=== PATIENT | male | born 1970 | race African-American/Black ===

== ENCOUNTER 2021-12-31 18:30 | Inpatient (IN) | payer BC ==
[~2021-12-31] VITALS: Ht 188 cm; Wt 170.1 kg
[2021-12-31] MEDS ORDERED: AMIODARONE HCL 200 MG TABLET PO ONE (22:30)
[2021-12-31] MEDS ORDERED: ACETAMINOPHEN 325MG TABLET PO PRN (22:30)
[2021-12-31] MEDS ORDERED: ONDANSETRON HCL 4MG/2ML INJ IV PRN (22:30)
[2021-12-31] MEDS ORDERED: LORAZEPAM 1MG TABLET PO PRN (22:30)
[2021-12-31] MEDS ORDERED: CLONIDINE 0.1MG TABLET PO PRN (22:30)
[2022-01-01 00:26] VITALS: BP 152/76
[2022-01-01] MEDS ORDERED: AMIODARONE HCL 200 MG TABLET PO NR (00:30)
[2022-01-01 02:11] VITALS: BP 152/76
[2022-01-01] MEDS ORDERED: BISACODYL 5MG TABLET PO PRN (05:30)
[2022-01-01] MEDS ORDERED: NON FORMULARY PATIENT HOME MED PO PRN (05:30)
[2022-01-01] MEDS ORDERED: MELATONIN 3MG TABLET PO PRN (06:00)
[2022-01-01 06:32] LABS: BASOPHILS % 0.7 % (0.0-2.0); EOSINOPHILS % 0.9 % (0.0-5.0); HEMATOCRIT. 26.3 % (42.0-52.0); HEMOGLOBIN. 8.4 g/dL (14.0-18.0); MEAN CORPUSCULAR HEMOGLOBIN 22.4 pg (28.0-32.0); MEAN CORPUSCULAR VOLUME 69.9 fL (80.0-94.0); MEAN PLATELET VOLUME 8.9 fl (7.4-10.4); NEUTROPHILS % 75.4 % (40.0-76.0); PLATELET 307 x1000/uL (130-400); RED BLOOD CELL COUNT 3.77 mill/uL (4.7-6.1); RED CELL DISTRIBUTION WIDTH 21.8 % (11.6-14.6)
[2022-01-01 06:55] LABS: CHLORIDE 107 mEq/L (98-107)
[2022-01-01] MEDS: PANTOPRAZOLE 40MG DR TABLET PO SCH (07:13)
[2022-01-01] MEDS ORDERED: NALOXONE HCL 0.4MG/ML VIAL IV PRN (07:30)
[2022-01-01 08:00] VITALS: BP 117/67
[2022-01-01] MEDS ORDERED: AMIODARONE HCL 200 MG TABLET PO SCH (09:00)
[2022-01-01 09:32] LABS: PLATELET ESTIMATE NORMAL
[2022-01-01] MEDS: CHLORHEXIDINE GLUCONATE 0.12% MOUTHWASH UDC SSP SCH ×2 (09:55→20:34)
[2022-01-01] MEDS: ASCORBIC ACID 500 MG TABLET PO SCH (09:56)
[2022-01-01] MEDS: LIDOCAINE 5% PATCH TOP SCH (09:56)
[2022-01-01] MEDS: ASPIRIN 81MG TABLET PO SCH (09:57)
[2022-01-01] MEDS: TAMSULOSIN HCL 0.4MG SR CAPSULE PO SCH (09:57)
[2022-01-01] MEDS: AMLODIPINE 2.5MG TABLET PO SCH ×2 (09:57→20:35)
[2022-01-01] MEDS: SENNOSIDES/DOCUSATE SOD 8.6/50MG TABLET PO SCH ×3 (09:57→20:39)
[2022-01-01] MEDS: AMIODARONE HCL 200 MG TABLET PO SCH ×2 (09:58→20:35)
[2022-01-01] MEDS: POLYETHYLENE GLYCOL 3350 (17GM) 1 DOSE PACK PO SCH (09:58)
[2022-01-01] MEDS: METOPROLOL TARTRATE 25MG TABLET PO SCH ×2 (09:59→20:35)
[2022-01-01] MEDS: HEPARIN 5000 UNITS/ML VIAL SUBCUT SCH ×3 (10:08→21:26)
[2022-01-01] MEDS: VITAMIN E ACETATE 400 UNITS CAPSULE PO SCH (10:08)
[2022-01-01 20:00] VITALS: BP 120/52
[2022-01-01] MEDS: TRAMADOL 50MG TABLET PO PRN (20:36)
[2022-01-02] MEDS: TRAMADOL 50MG TABLET PO PRN ×2 (00:57→06:20)
[2022-01-02] MEDS: MELATONIN 3MG TABLET PO PRN (01:58)
[2022-01-02] MEDS: HEPARIN 5000 UNITS/ML VIAL SUBCUT SCH ×3 (06:19→22:21)
[2022-01-02] MEDS: PANTOPRAZOLE 40MG DR TABLET PO SCH (06:20)
[2022-01-02 08:00] VITALS: BP 122/62
[2022-01-02] MEDS: ASPIRIN 81MG TABLET PO SCH (08:56)
[2022-01-02] MEDS: ASCORBIC ACID 500 MG TABLET PO SCH (09:00)
[2022-01-02] MEDS: POLYETHYLENE GLYCOL 3350 (17GM) 1 DOSE PACK PO SCH (09:00)
[2022-01-02] MEDS: TAMSULOSIN HCL 0.4MG SR CAPSULE PO SCH (09:00)
[2022-01-02] MEDS: AMIODARONE HCL 200 MG TABLET PO SCH ×2 (09:00→20:54)
[2022-01-02] MEDS: VITAMIN E ACETATE 400 UNITS CAPSULE PO SCH (09:00)
[2022-01-02] MEDS: SENNOSIDES/DOCUSATE SOD 8.6/50MG TABLET PO SCH ×2 (09:00→20:55)
[2022-01-02] MEDS: METOPROLOL TARTRATE 25MG TABLET PO SCH ×2 (09:00→20:54)
[2022-01-02] MEDS: CHLORHEXIDINE GLUCONATE 0.12% MOUTHWASH UDC SSP SCH ×2 (09:00→20:54)
[2022-01-02] MEDS: LIDOCAINE 5% PATCH TOP SCH (09:00)
[2022-01-02] MEDS: AMLODIPINE 2.5MG TABLET PO SCH ×2 (09:08→20:54)
[2022-01-02 20:24] VITALS: BP 149/77
[2022-01-03 06:14] LABS: HEMATOCRIT 25.6 % (42.0-52.0); HEMOGLOBIN 8.1 g/dL (14.0-18.0); MEAN CORPUSCULAR HEMOGLOBIN 21.9 pg (28.0-32.0); MEAN CORPUSCULAR VOLUME 69.3 fL (80.0-94.0); PLATELET 327 x1000/uL (130-400); RED BLOOD CELL COUNT 3.69 mill/uL (4.7-6.1); RED CELL DISTRIBUTION WIDTH 22.1 % (11.6-14.6)
[2022-01-03] MEDS: HEPARIN 5000 UNITS/ML VIAL SUBCUT SCH ×3 (06:27→21:25)
[2022-01-03 06:32] LABS: CHLORIDE 105 mEq/L (98-107)
[2022-01-03 08:00] VITALS: BP 107/67
[2022-01-03] MEDS: METOPROLOL TARTRATE 25MG TABLET PO SCH ×2 (09:00→21:22)
[2022-01-03] MEDS: TAMSULOSIN HCL 0.4MG SR CAPSULE PO SCH (09:00)
[2022-01-03] MEDS: AMLODIPINE 2.5MG TABLET PO SCH ×2 (09:00→21:22)
[2022-01-03] MEDS: CHLORHEXIDINE GLUCONATE 0.12% MOUTHWASH UDC SSP SCH ×2 (09:50→21:24)
[2022-01-03] MEDS: POLYETHYLENE GLYCOL 3350 (17GM) 1 DOSE PACK PO SCH (09:50)
[2022-01-03] MEDS: AMIODARONE HCL 200 MG TABLET PO SCH ×2 (09:51→21:23)
[2022-01-03] MEDS: ASCORBIC ACID 500 MG TABLET PO SCH (09:51)
[2022-01-03] MEDS: ASPIRIN 81MG TABLET PO SCH (09:51)
[2022-01-03] MEDS: SENNOSIDES/DOCUSATE SOD 8.6/50MG TABLET PO SCH ×2 (09:51→21:24)
[2022-01-03] MEDS: VITAMIN E ACETATE 400 UNITS CAPSULE PO SCH (09:53)
[2022-01-03] MEDS: FAMOTIDINE 20MG TABLET PO SCH ×2 (09:53→16:56)
[2022-01-03] MEDS: LIDOCAINE 5% PATCH TOP SCH (10:26)
[2022-01-03] MEDS ORDERED: HYDROXYZINE 25MG TABLET PO PRN (17:30)
[2022-01-03 20:18] VITALS: BP 146/111
[2022-01-03] MEDS: MELATONIN 3MG TABLET PO PRN (21:23)
[2022-01-04] MEDS: HEPARIN 5000 UNITS/ML VIAL SUBCUT SCH ×3 (06:05→21:11)
[2022-01-04] MEDS: AMLODIPINE 2.5MG TABLET PO SCH ×2 (10:06→21:12)
[2022-01-04] MEDS: SENNOSIDES/DOCUSATE SOD 8.6/50MG TABLET PO SCH ×2 (10:06→21:11)
[2022-01-04] MEDS: AMIODARONE HCL 200 MG TABLET PO SCH ×2 (10:07→21:13)
[2022-01-04] MEDS: ASCORBIC ACID 500 MG TABLET PO SCH (10:07)
[2022-01-04] MEDS: TAMSULOSIN HCL 0.4MG SR CAPSULE PO SCH (10:07)
[2022-01-04] MEDS: FAMOTIDINE 20MG TABLET PO SCH ×2 (10:08→17:20)
[2022-01-04] MEDS: CHLORHEXIDINE GLUCONATE 0.12% MOUTHWASH UDC SSP SCH ×2 (10:08→21:11)
[2022-01-04] MEDS: VITAMIN E ACETATE 400 UNITS CAPSULE PO SCH (10:08)
[2022-01-04] MEDS: POLYETHYLENE GLYCOL 3350 (17GM) 1 DOSE PACK PO SCH (10:08)
[2022-01-04] MEDS: METOPROLOL TARTRATE 25MG TABLET PO SCH ×2 (10:10→21:00)
[2022-01-04] MEDS: ASPIRIN 81MG TABLET PO SCH (10:10)
[2022-01-04] MEDS: LIDOCAINE 5% PATCH TOP SCH (10:11)
[2022-01-04] MEDS: FUROSEMIDE 20MG TABLET PO SCH (13:30)
[2022-01-04 20:06] VITALS: BP 97/68
[2022-01-04] MEDS: MELATONIN 3MG TABLET PO PRN (21:12)
[2022-01-05] MEDS: HEPARIN 5000 UNITS/ML VIAL SUBCUT SCH ×3 (05:48→21:36)
[2022-01-05] MEDS: LIDOCAINE 5% PATCH TOP SCH (09:00)
[2022-01-05] MEDS: CHLORHEXIDINE GLUCONATE 0.12% MOUTHWASH UDC SSP SCH ×3 (09:00→21:36)
[2022-01-05] MEDS: POLYETHYLENE GLYCOL 3350 (17GM) 1 DOSE PACK PO SCH ×2 (09:00→09:02)
[2022-01-05] MEDS: ASPIRIN 81MG TABLET PO SCH (09:03)
[2022-01-05] MEDS: SENNOSIDES/DOCUSATE SOD 8.6/50MG TABLET PO SCH ×2 (09:03→21:34)
[2022-01-05] MEDS: TAMSULOSIN HCL 0.4MG SR CAPSULE PO SCH (09:03)
[2022-01-05] MEDS: FAMOTIDINE 20MG TABLET PO SCH ×2 (09:03→16:58)
[2022-01-05] MEDS: TRAMADOL 50MG TABLET PO PRN ×2 (09:05→20:25)
[2022-01-05] MEDS: METOPROLOL TARTRATE 25MG TABLET PO SCH ×2 (09:06→21:35)
[2022-01-05] MEDS: VITAMIN E ACETATE 400 UNITS CAPSULE PO SCH (09:06)
[2022-01-05] MEDS: AMIODARONE HCL 200 MG TABLET PO SCH ×2 (09:06→21:35)
[2022-01-05] MEDS: ASCORBIC ACID 500 MG TABLET PO SCH (09:06)
[2022-01-05] MEDS: AMLODIPINE 2.5MG TABLET PO SCH (09:06)
[2022-01-05] MEDS: FUROSEMIDE 20MG TABLET PO SCH (09:15)
[2022-01-05] MEDS ORDERED: LIDOCAINE 5% PATCH TOP SCH (10:30)
[2022-01-05] MEDS: MELATONIN 3MG TABLET PO PRN (23:32)
[2022-01-06] MEDS: TRAMADOL 50MG TABLET PO PRN ×4 (00:58→21:49)
[2022-01-06] MEDS: HEPARIN 5000 UNITS/ML VIAL SUBCUT SCH ×3 (06:23→21:38)
[2022-01-06] MEDS: METOPROLOL TARTRATE 25MG TABLET PO SCH ×2 (09:00→21:37)
[2022-01-06] MEDS: CHLORHEXIDINE GLUCONATE 0.12% MOUTHWASH UDC SSP SCH ×2 (09:00→21:37)
[2022-01-06] MEDS: TAMSULOSIN HCL 0.4MG SR CAPSULE PO SCH (09:00)
[2022-01-06] MEDS: AMIODARONE HCL 200 MG TABLET PO SCH ×2 (09:00→21:38)
[2022-01-06] MEDS: FUROSEMIDE 20MG TABLET PO SCH (09:00)
[2022-01-06] MEDS: POLYETHYLENE GLYCOL 3350 (17GM) 1 DOSE PACK PO SCH (09:00)
[2022-01-06] MEDS: AMLODIPINE 2.5MG TABLET PO SCH (09:00)
[2022-01-06] MEDS: FAMOTIDINE 20MG TABLET PO SCH ×2 (10:33→17:10)
[2022-01-06] MEDS: ASPIRIN 81MG TABLET PO SCH (10:33)
[2022-01-06] MEDS: VITAMIN E ACETATE 400 UNITS CAPSULE PO SCH (10:34)
[2022-01-06] MEDS: ASCORBIC ACID 500 MG TABLET PO SCH (10:34)
[2022-01-06] MEDS: SENNOSIDES/DOCUSATE SOD 8.6/50MG TABLET PO SCH ×2 (10:35→21:37)
[2022-01-06] MEDS: LIDOCAINE 5% PATCH TOP SCH (10:37)
[2022-01-06] MEDS ORDERED: NALOXONE HCL 0.4MG/ML VIAL IV PRN (11:00)
[2022-01-06 20:00] VITALS: BP 150/80
[2022-01-06] MEDS: MELATONIN 3MG TABLET PO PRN (21:49)
[2022-01-07] MEDS: HEPARIN 5000 UNITS/ML VIAL SUBCUT SCH ×3 (05:45→21:11)
[2022-01-07 05:59] LABS: CHLORIDE 106 mEq/L (98-107)
[2022-01-07 08:00] VITALS: BP 141/56
[2022-01-07] MEDS: CHLORHEXIDINE GLUCONATE 0.12% MOUTHWASH UDC SSP SCH ×2 (10:30→21:04)
[2022-01-07] MEDS: LIDOCAINE 5% PATCH TOP SCH (11:04)
[2022-01-07] MEDS: POLYETHYLENE GLYCOL 3350 (17GM) 1 DOSE PACK PO SCH (11:05)
[2022-01-07] MEDS: SENNOSIDES/DOCUSATE SOD 8.6/50MG TABLET PO SCH ×2 (11:06→20:59)
[2022-01-07] MEDS: AMLODIPINE 2.5MG TABLET PO SCH (11:07)
[2022-01-07] MEDS: ASPIRIN 81MG TABLET PO SCH (11:07)
[2022-01-07] MEDS: VITAMIN E ACETATE 400 UNITS CAPSULE PO SCH (11:07)
[2022-01-07] MEDS: METOPROLOL TARTRATE 25MG TABLET PO SCH ×2 (11:09→20:56)
[2022-01-07] MEDS: TAMSULOSIN HCL 0.4MG SR CAPSULE PO SCH (11:10)
[2022-01-07] MEDS: AMIODARONE HCL 200 MG TABLET PO SCH ×2 (11:10→21:00)
[2022-01-07] MEDS: FAMOTIDINE 20MG TABLET PO SCH ×2 (11:10→16:59)
[2022-01-07] MEDS: ASCORBIC ACID 500 MG TABLET PO SCH (11:11)
[2022-01-07] MEDS: FUROSEMIDE 20MG TABLET PO SCH (11:11)
[2022-01-07 20:00] VITALS: BP 97/67
[2022-01-07] MEDS: ACETAMINOPHEN 325MG TABLET PO PRN (21:01)
[2022-01-08] MEDS: HEPARIN 5000 UNITS/ML VIAL SUBCUT SCH ×3 (06:00→22:10)
[2022-01-08 08:00] VITALS: BP 134/59
[2022-01-08] MEDS: POLYETHYLENE GLYCOL 3350 (17GM) 1 DOSE PACK PO SCH (10:37)
[2022-01-08] MEDS: AMLODIPINE 2.5MG TABLET PO SCH (10:38)
[2022-01-08] MEDS: SENNOSIDES/DOCUSATE SOD 8.6/50MG TABLET PO SCH ×2 (10:38→21:00)
[2022-01-08] MEDS: METOPROLOL TARTRATE 25MG TABLET PO SCH ×2 (10:38→21:00)
[2022-01-08] MEDS: ASPIRIN 81MG TABLET PO SCH (10:40)
[2022-01-08] MEDS: ASCORBIC ACID 500 MG TABLET PO SCH (10:40)
[2022-01-08] MEDS: AMIODARONE HCL 200 MG TABLET PO SCH (10:40)
[2022-01-08] MEDS: FUROSEMIDE 20MG TABLET PO SCH (10:41)
[2022-01-08] MEDS: FAMOTIDINE 20MG TABLET PO SCH ×2 (10:41→16:58)
[2022-01-08] MEDS: TAMSULOSIN HCL 0.4MG SR CAPSULE PO SCH (10:41)
[2022-01-08] MEDS: LIDOCAINE 5% PATCH TOP SCH (10:48)
[2022-01-08] MEDS: VITAMIN E ACETATE 400 UNITS CAPSULE PO SCH (10:48)
[2022-01-08] MEDS: CHLORHEXIDINE GLUCONATE 0.12% MOUTHWASH UDC SSP SCH (10:48)
[2022-01-08] MEDS: MELATONIN 3MG TABLET PO SCH (21:00)
[2022-01-08] MEDS ORDERED: HYDROXYZINE 25MG TABLET PO PRN (22:30)
[2022-01-09] MEDS: HYDROCODONE/ACETAMINOPHEN 5/325MG TABLET PO PRN ×2 (00:21→05:52)
[2022-01-09] MEDS: HEPARIN 5000 UNITS/ML VIAL SUBCUT SCH ×3 (05:52→22:00)
[2022-01-09 07:05] LABS: BASOPHILS % 0.5 % (0.0-2.0); EOSINOPHILS % 3.4 % (0.0-5.0); HEMATOCRIT. 25.1 % (42.0-52.0); HEMOGLOBIN. 8.1 g/dL (14.0-18.0); LYMPHOCYTES % 28.1 % (20.0-50.0); MEAN CORPUSCULAR HEMOGLOBIN 21.8 pg (28.0-32.0); MEAN PLATELET VOLUME 8.5 fl (7.4-10.4); MONOCYTES % 9.9 % (2.0-8.0); NEUTROPHILS % 58.1 % (40.0-76.0); PLATELET 352 x1000/uL (130-400); RED CELL DISTRIBUTION WIDTH 21.5 % (11.6-14.6)
[2022-01-09 07:19] LABS: CHLORIDE 104 mEq/L (98-107)
[2022-01-09 07:36] LABS: CREATINE KINASE 604 IU/L (39-308); HDL CHOLESTEROL 33 mg/dL (40-59); LDL CHOLESTEROL 85 mg/dL (5-100); PHOSPHORUS 3.9 mg/dL (2.5-4.9); TOTAL IRON BINDING CAPACITY 389 ug/dL (250-450)
[2022-01-09 07:48] LABS: FOLIC ACID (FOLATE) SERUM 6.9 ng/mL (>5.38)
[2022-01-09 08:00] VITALS: BP 131/65
[2022-01-09] MEDS: LIDOCAINE 5% PATCH TOP SCH (09:00)
[2022-01-09] MEDS ORDERED: HYDROCODONE/ACETAMINOPHEN 5/325MG TABLET PO STA (09:42)
[2022-01-09] MEDS: ASPIRIN 81MG TABLET PO SCH (09:53)
[2022-01-09] MEDS: AMIODARONE HCL 200 MG TABLET PO SCH (09:53)
[2022-01-09] MEDS: FAMOTIDINE 20MG TABLET PO SCH ×2 (09:53→17:29)
[2022-01-09] MEDS: VITAMIN E ACETATE 400 UNITS CAPSULE PO SCH (09:53)
[2022-01-09] MEDS: FUROSEMIDE 20MG TABLET PO SCH (09:53)
[2022-01-09] MEDS: METOPROLOL TARTRATE 25MG TABLET PO SCH ×2 (09:53→21:33)
[2022-01-09] MEDS: ASCORBIC ACID 500 MG TABLET PO SCH (09:54)
[2022-01-09] MEDS: AMLODIPINE 2.5MG TABLET PO SCH (09:54)
[2022-01-09] MEDS: SENNOSIDES/DOCUSATE SOD 8.6/50MG TABLET PO SCH ×2 (09:54→21:33)
[2022-01-09] MEDS: POLYETHYLENE GLYCOL 3350 (17GM) 1 DOSE PACK PO SCH (09:55)
[2022-01-09] MEDS: TAMSULOSIN HCL 0.4MG SR CAPSULE PO SCH (09:57)
[2022-01-09] MEDS ORDERED: NALOXONE HCL 0.4MG/ML VIAL IV PRN (10:15)
[2022-01-09] MEDS ORDERED: HYDROCODONE/ACETAMINOPHEN 5/325MG TABLET PO NR (10:15)
[2022-01-09] MEDS: HYDROCODONE/ACETAMINOPHEN 10/325MG TABLET PO PRN ×2 (14:08→21:34)
[2022-01-09] MEDS: FERROUS SULFATE 325MG TABLET PO SCH (14:08)
[2022-01-09] MEDS: MAGNESIUM OXIDE 400MG TABLET PO SCH ×2 (14:08→17:29)
[2022-01-09] MEDS: MELATONIN 3MG TABLET PO SCH (21:34)
[2022-01-10] MEDS: HEPARIN 5000 UNITS/ML VIAL SUBCUT SCH ×3 (05:42→22:00)
[2022-01-10 08:00] VITALS: BP 160/71
[2022-01-10] MEDS: VITAMIN E ACETATE 400 UNITS CAPSULE PO SCH (08:59)
[2022-01-10] MEDS: METOPROLOL TARTRATE 25MG TABLET PO SCH ×2 (08:59→21:00)
[2022-01-10] MEDS: AMIODARONE HCL 200 MG TABLET PO SCH (08:59)
[2022-01-10] MEDS: ASCORBIC ACID 500 MG TABLET PO SCH (08:59)
[2022-01-10] MEDS: TAMSULOSIN HCL 0.4MG SR CAPSULE PO SCH (08:59)
[2022-01-10] MEDS: FUROSEMIDE 20MG TABLET PO SCH (08:59)
[2022-01-10] MEDS: FAMOTIDINE 20MG TABLET PO SCH ×2 (09:00→16:45)
[2022-01-10] MEDS: AMLODIPINE 2.5MG TABLET PO SCH (09:00)
[2022-01-10] MEDS: ASPIRIN 81MG TABLET PO SCH (09:00)
[2022-01-10] MEDS: LEVOTHYROXINE SODIUM 25MCG TABLET PO SCH (09:00)
[2022-01-10] MEDS: SENNOSIDES/DOCUSATE SOD 8.6/50MG TABLET PO SCH ×2 (09:01→21:26)
[2022-01-10] MEDS: POLYETHYLENE GLYCOL 3350 (17GM) 1 DOSE PACK PO SCH (09:01)
[2022-01-10] MEDS: LIDOCAINE 5% PATCH TOP SCH (09:02)
[2022-01-10] MEDS: FERROUS SULFATE 325MG TABLET PO SCH (09:17)
[2022-01-10 10:50] LABS: BASOPHILS % 0.8 % (0.0-2.0); EOSINOPHILS % 4.1 % (0.0-5.0); HEMATOCRIT. 24.8 % (42.0-52.0); LYMPHOCYTES % 25.1 % (20.0-50.0); MEAN CORPUSCULAR HEMOGLOBIN 22.1 pg (28.0-32.0); MEAN CORPUSCULAR VOLUME 68.8 fL (80.0-94.0); MEAN PLATELET VOLUME 8.6 fl (7.4-10.4); MONOCYTES % 10.3 % (2.0-8.0); NEUTROPHILS % 59.7 % (40.0-76.0); PLATELET 325 x1000/uL (130-400); RED CELL DISTRIBUTION WIDTH 21.8 % (11.6-14.6)
[2022-01-10 11:03] LABS: CHLORIDE 105 mEq/L (98-107)
[2022-01-10] MEDS ORDERED: AMLODIPINE 2.5MG TABLET PO NR (11:15)
[2022-01-10 11:18] LABS: PHOSPHORUS 3.8 mg/dL (2.5-4.9); T4 FREE 1.19 ng/dL (0.76-1.46)
[2022-01-10 20:05] VITALS: BP 99/60
[2022-01-10] MEDS: MELATONIN 3MG TABLET PO SCH (21:28)
[2022-01-10] MEDS: HYDROCODONE/ACETAMINOPHEN 10/325MG TABLET PO PRN (23:20)
[2022-01-11] MEDS: LEVOTHYROXINE SODIUM 25MCG TABLET PO SCH (05:37)
[2022-01-11] MEDS: HEPARIN 5000 UNITS/ML VIAL SUBCUT SCH ×3 (05:37→21:20)
[2022-01-11 08:00] VITALS: BP 129/60
[2022-01-11] MEDS: POLYETHYLENE GLYCOL 3350 (17GM) 1 DOSE PACK PO SCH (09:00)
[2022-01-11] MEDS: SENNOSIDES/DOCUSATE SOD 8.6/50MG TABLET PO SCH ×2 (09:00→21:20)
[2022-01-11] MEDS: ASPIRIN 81MG TABLET PO SCH (10:07)
[2022-01-11] MEDS: LIDOCAINE 5% PATCH TOP SCH (10:07)
[2022-01-11] MEDS: TAMSULOSIN HCL 0.4MG SR CAPSULE PO SCH (10:08)
[2022-01-11] MEDS: FAMOTIDINE 20MG TABLET PO SCH ×2 (10:08→17:56)
[2022-01-11] MEDS: FUROSEMIDE 20MG TABLET PO SCH (10:09)
[2022-01-11] MEDS: AMLODIPINE 5MG TABLET PO SCH (10:09)
[2022-01-11] MEDS: VITAMIN E ACETATE 400 UNITS CAPSULE PO SCH (10:09)
[2022-01-11] MEDS: ASCORBIC ACID 500 MG TABLET PO SCH (10:09)
[2022-01-11] MEDS: AMIODARONE HCL 200 MG TABLET PO SCH (10:09)
[2022-01-11] MEDS: METOPROLOL TARTRATE 25MG TABLET PO SCH ×2 (10:10→21:20)
[2022-01-11] MEDS: FERROUS SULFATE 325MG TABLET PO SCH (10:10)
[2022-01-11] MEDS: MAGNESIUM OXIDE 400MG TABLET PO SCH ×2 (12:09→17:56)
[2022-01-11] MEDS ORDERED: IPRATROPIUM/ALBUTEROL 0.5-3(2.5)MG/3ML NEB HHN PRN (16:00)
[2022-01-11] MEDS: HYDROCODONE/ACETAMINOPHEN 10/325MG TABLET PO PRN (17:56)
[2022-01-11 20:26] VITALS: BP 137/65
[2022-01-11] MEDS: MELATONIN 3MG TABLET PO SCH (21:20)
[2022-01-12] MEDS: HYDROCODONE/ACETAMINOPHEN 10/325MG TABLET PO PRN ×2 (00:24→12:11)
[2022-01-12] MEDS: HEPARIN 5000 UNITS/ML VIAL SUBCUT SCH ×3 (06:12→21:15)
[2022-01-12] MEDS: LEVOTHYROXINE SODIUM 25MCG TABLET PO SCH (06:12)
[2022-01-12 06:24] LABS: BASOPHILS % 0.7 % (0.0-2.0); EOSINOPHILS % 3.4 % (0.0-5.0); HEMATOCRIT. 25.2 % (42.0-52.0); HEMOGLOBIN. 7.9 g/dL (14.0-18.0); LYMPHOCYTES % 30.8 % (20.0-50.0); MEAN CORPUSCULAR HEMOGLOBIN 21.7 pg (28.0-32.0); MEAN CORPUSCULAR VOLUME 68.8 fL (80.0-94.0); MEAN PLATELET VOLUME 8.4 fl (7.4-10.4); MONOCYTES % 9.8 % (2.0-8.0); NEUTROPHILS % 55.3 % (40.0-76.0); PLATELET 296 x1000/uL (130-400); RED BLOOD CELL COUNT 3.66 mill/uL (4.7-6.1)
[2022-01-12 06:29] LABS: CHLORIDE 104 mEq/L (98-107)
[2022-01-12 07:15] LABS: PHOSPHORUS 4.4 mg/dL (2.5-4.9)
[2022-01-12 08:00] VITALS: BP 149/47
[2022-01-12] MEDS: VITAMIN E ACETATE 400 UNITS CAPSULE PO SCH (09:00)
[2022-01-12] MEDS: SENNOSIDES/DOCUSATE SOD 8.6/50MG TABLET PO SCH ×2 (09:12→21:00)
[2022-01-12] MEDS: POLYETHYLENE GLYCOL 3350 (17GM) 1 DOSE PACK PO SCH (09:12)
[2022-01-12] MEDS: ASPIRIN 81MG TABLET PO SCH (09:13)
[2022-01-12] MEDS: MAGNESIUM OXIDE 400MG TABLET PO SCH ×2 (09:13→17:36)
[2022-01-12] MEDS: ASCORBIC ACID 500 MG TABLET PO SCH (09:13)
[2022-01-12] MEDS: METOPROLOL TARTRATE 25MG TABLET PO SCH ×2 (09:14→21:15)
[2022-01-12] MEDS: AMLODIPINE 5MG TABLET PO SCH (09:14)
[2022-01-12] MEDS: TAMSULOSIN HCL 0.4MG SR CAPSULE PO SCH (09:15)
[2022-01-12] MEDS: FAMOTIDINE 20MG TABLET PO SCH ×2 (09:15→17:36)
[2022-01-12] MEDS: AMIODARONE HCL 200 MG TABLET PO SCH (09:15)
[2022-01-12] MEDS: LIDOCAINE 5% PATCH TOP SCH (09:16)
[2022-01-12] MEDS: FUROSEMIDE 20MG TABLET PO SCH (09:23)
[2022-01-12 20:00] VITALS: BP 126/64
[2022-01-12] MEDS: MELATONIN 3MG TABLET PO SCH (21:16)
[2022-01-13] MEDS: HYDROCODONE/ACETAMINOPHEN 10/325MG TABLET PO PRN ×4 (00:01→22:26)
[2022-01-13] MEDS: HEPARIN 5000 UNITS/ML VIAL SUBCUT SCH ×3 (05:42→22:21)
[2022-01-13] MEDS: LEVOTHYROXINE SODIUM 25MCG TABLET PO SCH (06:05)
[2022-01-13 08:00] VITALS: BP 103/58
[2022-01-13] MEDS: SENNOSIDES/DOCUSATE SOD 8.6/50MG TABLET PO SCH (09:00)
[2022-01-13] MEDS: AMLODIPINE 5MG TABLET PO SCH (09:00)
[2022-01-13] MEDS: METOPROLOL TARTRATE 25MG TABLET PO SCH ×2 (09:00→21:00)
[2022-01-13] MEDS: FUROSEMIDE 20MG TABLET PO SCH (09:55)
[2022-01-13] MEDS: VITAMIN E ACETATE 400 UNITS CAPSULE PO SCH (09:55)
[2022-01-13] MEDS: AMIODARONE HCL 200 MG TABLET PO SCH ×2 (09:55→10:02)
[2022-01-13] MEDS: MAGNESIUM OXIDE 400MG TABLET PO SCH ×2 (09:56→17:21)
[2022-01-13] MEDS: FAMOTIDINE 20MG TABLET PO SCH ×2 (09:56→17:21)
[2022-01-13] MEDS: ASCORBIC ACID 500 MG TABLET PO SCH (09:57)
[2022-01-13] MEDS: ASPIRIN 81MG TABLET PO SCH (09:57)
[2022-01-13] MEDS: TAMSULOSIN HCL 0.4MG SR CAPSULE PO SCH (09:57)
[2022-01-13] MEDS: POLYETHYLENE GLYCOL 3350 (17GM) 1 DOSE PACK PO SCH (10:02)
[2022-01-13] MEDS: LIDOCAINE 5% PATCH TOP SCH (10:08)
[2022-01-13 20:00] VITALS: BP 115/64
[2022-01-13] MEDS: MELATONIN 3MG TABLET PO SCH (22:05)
[2022-01-14] MEDS: LEVOTHYROXINE SODIUM 25MCG TABLET PO SCH (06:26)
[2022-01-14] MEDS: HEPARIN 5000 UNITS/ML VIAL SUBCUT SCH ×3 (06:27→21:22)
[2022-01-14] MEDS: HYDROCODONE/ACETAMINOPHEN 10/325MG TABLET PO PRN (07:52)
[2022-01-14 08:00] VITALS: BP 152/73
[2022-01-14] MEDS: SENNOSIDES/DOCUSATE SOD 8.6/50MG TABLET PO SCH ×2 (09:00→20:57)
[2022-01-14] MEDS: METOPROLOL TARTRATE 25MG TABLET PO SCH ×2 (09:25→20:56)
[2022-01-14] MEDS: FERROUS SULFATE 325MG TABLET PO SCH (09:25)
[2022-01-14] MEDS: ASPIRIN 81MG TABLET PO SCH (09:26)
[2022-01-14] MEDS: ASCORBIC ACID 500 MG TABLET PO SCH (09:27)
[2022-01-14] MEDS: MAGNESIUM OXIDE 400MG TABLET PO SCH ×2 (09:28→16:10)
[2022-01-14] MEDS: AMLODIPINE 5MG TABLET PO SCH (09:28)
[2022-01-14] MEDS: FAMOTIDINE 20MG TABLET PO SCH ×2 (09:29→16:10)
[2022-01-14] MEDS: TAMSULOSIN HCL 0.4MG SR CAPSULE PO SCH (09:29)
[2022-01-14] MEDS: VITAMIN E ACETATE 400 UNITS CAPSULE PO SCH (09:29)
[2022-01-14] MEDS: FUROSEMIDE 20MG TABLET PO SCH (09:29)
[2022-01-14] MEDS: LIDOCAINE 5% PATCH TOP SCH (09:41)
[2022-01-14] MEDS: POLYETHYLENE GLYCOL 3350 (17GM) 1 DOSE PACK PO SCH (09:42)
[2022-01-14] MEDS ORDERED: NALOXONE HCL 0.4MG/ML VIAL IV PRN (12:00)
[2022-01-14] MEDS ORDERED: NALOXONE HCL 0.4 MG/ML 1ML VIAL IV NR (12:00)
[2022-01-14] MEDS: HYDROCODONE/ACETAMINOPHEN 5/325MG TABLET PO PRN ×2 (14:05→23:00)
[2022-01-14] MEDS: MAGNESIUM HYDROXIDE 400MG/5ML 30ML UDC PO PRN (14:11)
[2022-01-14 20:04] VITALS: BP 131/59
[2022-01-14] MEDS: MELATONIN 3MG TABLET PO SCH (20:54)
[2022-01-15] MEDS: HEPARIN 5000 UNITS/ML VIAL SUBCUT SCH ×3 (06:13→22:06)
[2022-01-15] MEDS: LEVOTHYROXINE SODIUM 25MCG TABLET PO SCH (06:13)
[2022-01-15] MEDS: HYDROCODONE/ACETAMINOPHEN 5/325MG TABLET PO PRN ×2 (06:19→20:14)
[2022-01-15 08:00] VITALS: BP 173/72
[2022-01-15] MEDS: FUROSEMIDE 20MG TABLET PO SCH (08:33)
[2022-01-15] MEDS: FAMOTIDINE 20MG TABLET PO SCH ×2 (08:33→16:50)
[2022-01-15] MEDS: AMIODARONE HCL 200 MG TABLET PO SCH (08:33)
[2022-01-15] MEDS: ASPIRIN 81MG TABLET PO SCH (08:33)
[2022-01-15] MEDS: MAGNESIUM OXIDE 400MG TABLET PO SCH ×2 (08:34→16:50)
[2022-01-15] MEDS: VITAMIN E ACETATE 400 UNITS CAPSULE PO SCH (08:34)
[2022-01-15] MEDS: ASCORBIC ACID 500 MG TABLET PO SCH (08:34)
[2022-01-15] MEDS: SENNOSIDES/DOCUSATE SOD 8.6/50MG TABLET PO SCH ×2 (08:35→20:15)
[2022-01-15] MEDS: POLYETHYLENE GLYCOL 3350 (17GM) 1 DOSE PACK PO SCH (08:35)
[2022-01-15] MEDS: TAMSULOSIN HCL 0.4MG SR CAPSULE PO SCH (08:41)
[2022-01-15] MEDS: METOPROLOL TARTRATE 25MG TABLET PO SCH ×2 (08:41→20:11)
[2022-01-15] MEDS: AMLODIPINE 5MG TABLET PO SCH (08:41)
[2022-01-15] MEDS: LIDOCAINE 5% PATCH TOP SCH (08:41)
[2022-01-15 09:30] VITALS: BP 133/48
[2022-01-15 20:00] VITALS: BP 145/63
[2022-01-15] MEDS: MELATONIN 3MG TABLET PO SCH (20:10)
[2022-01-16] MEDS: HYDROCODONE/ACETAMINOPHEN 5/325MG TABLET PO PRN ×3 (03:30→22:28)
[2022-01-16] MEDS: LEVOTHYROXINE SODIUM 25MCG TABLET PO SCH (06:55)
[2022-01-16] MEDS: HEPARIN 5000 UNITS/ML VIAL SUBCUT SCH ×3 (06:56→22:19)
[2022-01-16 08:00] VITALS: BP 146/71
[2022-01-16] MEDS: SENNOSIDES/DOCUSATE SOD 8.6/50MG TABLET PO SCH ×2 (09:00→20:56)
[2022-01-16] MEDS: POLYETHYLENE GLYCOL 3350 (17GM) 1 DOSE PACK PO SCH (09:00)
[2022-01-16] MEDS: LIDOCAINE 5% PATCH TOP SCH (09:29)
[2022-01-16] MEDS: AMLODIPINE 5MG TABLET PO SCH (09:32)
[2022-01-16] MEDS: ASCORBIC ACID 500 MG TABLET PO SCH (09:32)
[2022-01-16] MEDS: ASPIRIN 81MG TABLET PO SCH (09:33)
[2022-01-16] MEDS: FAMOTIDINE 20MG TABLET PO SCH ×2 (09:33→17:34)
[2022-01-16] MEDS: FUROSEMIDE 20MG TABLET PO SCH (09:33)
[2022-01-16] MEDS: TAMSULOSIN HCL 0.4MG SR CAPSULE PO SCH (09:33)
[2022-01-16] MEDS: MAGNESIUM OXIDE 400MG TABLET PO SCH ×2 (09:33→17:34)
[2022-01-16] MEDS: AMIODARONE HCL 200 MG TABLET PO SCH (09:33)
[2022-01-16] MEDS: VITAMIN E ACETATE 400 UNITS CAPSULE PO SCH (09:33)
[2022-01-16] MEDS: METOPROLOL TARTRATE 25MG TABLET PO SCH ×2 (09:34→20:55)
[2022-01-16 16:20] LABS: BASOPHILS % 0.7 % (0.0-2.0); EOSINOPHILS % 0.9 % (0.0-5.0); HEMATOCRIT. 28.4 % (42.0-52.0); HEMOGLOBIN. 8.7 g/dL (14.0-18.0); LYMPHOCYTES % 30.3 % (20.0-50.0); MEAN CORPUSCULAR HEMOGLOBIN 21.6 pg (28.0-32.0); MEAN CORPUSCULAR VOLUME 70.3 fL (80.0-94.0); MEAN PLATELET VOLUME 8.9 fl (7.4-10.4); MONOCYTES % 7.5 % (2.0-8.0); NEUTROPHILS % 60.6 % (40.0-76.0); PLATELET 265 x1000/uL (130-400); RED BLOOD CELL COUNT 4.04 mill/uL (4.7-6.1); RED CELL DISTRIBUTION WIDTH 22.6 % (11.6-14.6)
[2022-01-16 16:26] LABS: CHLORIDE 104 mEq/L (98-107)
[2022-01-16 20:00] VITALS: BP 147/78
[2022-01-16] MEDS: MELATONIN 3MG TABLET PO SCH (20:55)
[2022-01-17] MEDS: LEVOTHYROXINE SODIUM 25MCG TABLET PO SCH ×2 (06:32→21:22)
[2022-01-17] MEDS: HEPARIN 5000 UNITS/ML VIAL SUBCUT SCH ×3 (06:32→21:21)
[2022-01-17 08:00] VITALS: BP 160/78
[2022-01-17] MEDS: ASPIRIN 81MG TABLET PO SCH (08:53)
[2022-01-17] MEDS: AMIODARONE HCL 200 MG TABLET PO SCH (08:54)
[2022-01-17] MEDS: ASCORBIC ACID 500 MG TABLET PO SCH (08:54)
[2022-01-17] MEDS: FERROUS SULFATE 325MG TABLET PO SCH (08:54)
[2022-01-17] MEDS: FUROSEMIDE 20MG TABLET PO SCH ×2 (08:54→21:22)
[2022-01-17] MEDS: FAMOTIDINE 20MG TABLET PO SCH ×2 (08:54→18:03)
[2022-01-17] MEDS: VITAMIN E ACETATE 400 UNITS CAPSULE PO SCH (08:54)
[2022-01-17] MEDS: AMLODIPINE 5MG TABLET PO SCH (08:55)
[2022-01-17] MEDS: TAMSULOSIN HCL 0.4MG SR CAPSULE PO SCH (08:55)
[2022-01-17] MEDS: POLYETHYLENE GLYCOL 3350 (17GM) 1 DOSE PACK PO SCH (08:56)
[2022-01-17] MEDS: MAGNESIUM OXIDE 400MG TABLET PO SCH ×2 (08:56→18:03)
[2022-01-17] MEDS: METOPROLOL TARTRATE 25MG TABLET PO SCH ×2 (08:56→21:27)
[2022-01-17] MEDS: HYDROCODONE/ACETAMINOPHEN 5/325MG TABLET PO PRN ×2 (08:56→18:18)
[2022-01-17] MEDS: LIDOCAINE 5% PATCH TOP SCH (09:02)
[2022-01-17] MEDS: SENNOSIDES/DOCUSATE SOD 8.6/50MG TABLET PO SCH ×2 (09:08→21:00)
[2022-01-17 19:40] VITALS: BP 104/68
[2022-01-17] MEDS: MELATONIN 3MG TABLET PO SCH (21:22)
[2022-01-18] MEDS: HYDROCODONE/ACETAMINOPHEN 5/325MG TABLET PO PRN ×2 (05:31→23:37)
[2022-01-18] MEDS: HEPARIN 5000 UNITS/ML VIAL SUBCUT SCH ×3 (05:31→21:55)
[2022-01-18 08:00] VITALS: BP 148/67
[2022-01-18] MEDS: VITAMIN E ACETATE 400 UNITS CAPSULE PO SCH (09:23)
[2022-01-18] MEDS: MAGNESIUM OXIDE 400MG TABLET PO SCH ×2 (09:23→18:23)
[2022-01-18] MEDS: FERROUS SULFATE 325MG TABLET PO SCH (09:23)
[2022-01-18] MEDS: ASCORBIC ACID 500 MG TABLET PO SCH (09:23)
[2022-01-18] MEDS: AMIODARONE HCL 200 MG TABLET PO SCH (09:24)
[2022-01-18] MEDS: FAMOTIDINE 20MG TABLET PO SCH ×2 (09:25→18:23)
[2022-01-18] MEDS: TAMSULOSIN HCL 0.4MG SR CAPSULE PO SCH (09:25)
[2022-01-18] MEDS: FUROSEMIDE 20MG TABLET PO SCH (09:25)
[2022-01-18] MEDS: ASPIRIN 81MG TABLET PO SCH (09:25)
[2022-01-18] MEDS: AMLODIPINE 5MG TABLET PO SCH (09:26)
[2022-01-18] MEDS: METOPROLOL TARTRATE 25MG TABLET PO SCH ×2 (09:26→21:56)
[2022-01-18] MEDS: LIDOCAINE 5% PATCH TOP SCH (09:31)
[2022-01-18] MEDS: POLYETHYLENE GLYCOL 3350 (17GM) 1 DOSE PACK PO SCH (09:34)
[2022-01-18] MEDS: SENNOSIDES/DOCUSATE SOD 8.6/50MG TABLET PO SCH ×2 (09:38→21:46)
[2022-01-18 20:00] VITALS: BP 154/79
[2022-01-18] MEDS: MELATONIN 3MG TABLET PO SCH (21:46)
[2022-01-19] MEDS: LEVOTHYROXINE SODIUM 25MCG TABLET PO SCH (06:01)
[2022-01-19] MEDS: HEPARIN 5000 UNITS/ML VIAL SUBCUT SCH ×3 (06:06→21:38)
[2022-01-19 08:00] VITALS: BP 161/81
[2022-01-19] MEDS: VITAMIN E ACETATE 400 UNITS CAPSULE PO SCH (08:37)
[2022-01-19] MEDS: MAGNESIUM OXIDE 400MG TABLET PO SCH ×2 (08:38→17:25)
[2022-01-19] MEDS: ASCORBIC ACID 500 MG TABLET PO SCH (08:38)
[2022-01-19] MEDS: SENNOSIDES/DOCUSATE SOD 8.6/50MG TABLET PO SCH ×2 (08:38→21:00)
[2022-01-19] MEDS: TAMSULOSIN HCL 0.4MG SR CAPSULE PO SCH (08:38)
[2022-01-19] MEDS: FAMOTIDINE 20MG TABLET PO SCH ×2 (08:38→17:25)
[2022-01-19] MEDS: POLYETHYLENE GLYCOL 3350 (17GM) 1 DOSE PACK PO SCH (08:38)
[2022-01-19] MEDS: METOPROLOL TARTRATE 25MG TABLET PO SCH ×2 (08:38→21:00)
[2022-01-19] MEDS: AMIODARONE HCL 200 MG TABLET PO SCH (08:38)
[2022-01-19] MEDS: ASPIRIN 81MG TABLET PO SCH (08:39)
[2022-01-19] MEDS: LIDOCAINE 5% PATCH TOP SCH (08:39)
[2022-01-19] MEDS: AMLODIPINE 5MG TABLET PO SCH (08:39)
[2022-01-19] MEDS: HYDROCODONE/ACETAMINOPHEN 5/325MG TABLET PO PRN ×2 (08:40→22:04)
[2022-01-19] MEDS: DICLOFENAC SODIUM 1% GEL 50GM TOP PRN ×2 (14:32→17:24)
[2022-01-19] MEDS: ACETAMINOPHEN 325MG TABLET PO PRN (19:46)
[2022-01-19 20:00] VITALS: BP 152/76
[2022-01-19] MEDS: MELATONIN 3MG TABLET PO SCH (21:00)
[2022-01-19] MEDS ORDERED: NALOXONE HCL 0.4MG/ML VIAL IV PRN (21:30)
[2022-01-20] MEDS: HEPARIN 5000 UNITS/ML VIAL SUBCUT SCH ×3 (05:56→21:01)
[2022-01-20] MEDS: HYDROCODONE/ACETAMINOPHEN 5/325MG TABLET PO PRN ×2 (05:56→21:00)
[2022-01-20 08:00] VITALS: BP 120/68
[2022-01-20] MEDS: DICLOFENAC SODIUM 1% GEL 50GM TOP PRN ×2 (08:29→14:25)
[2022-01-20] MEDS: LIDOCAINE 5% PATCH TOP SCH (09:00)
[2022-01-20] MEDS: POLYETHYLENE GLYCOL 3350 (17GM) 1 DOSE PACK PO SCH (09:00)
[2022-01-20] MEDS: ASPIRIN 81MG TABLET PO SCH (11:27)
[2022-01-20] MEDS: FERROUS SULFATE 325MG TABLET PO SCH (11:27)
[2022-01-20] MEDS: SENNOSIDES/DOCUSATE SOD 8.6/50MG TABLET PO SCH ×2 (11:27→21:00)
[2022-01-20] MEDS: METOPROLOL TARTRATE 25MG TABLET PO SCH ×2 (11:28→21:00)
[2022-01-20] MEDS: MAGNESIUM HYDROXIDE 400MG/5ML 30ML UDC PO PRN (11:28)
[2022-01-20] MEDS: MAGNESIUM OXIDE 400MG TABLET PO SCH ×2 (11:28→17:37)
[2022-01-20] MEDS: AMIODARONE HCL 200 MG TABLET PO SCH (11:28)
[2022-01-20] MEDS: TAMSULOSIN HCL 0.4MG SR CAPSULE PO SCH (11:29)
[2022-01-20] MEDS: FAMOTIDINE 20MG TABLET PO SCH ×2 (11:29→17:37)
[2022-01-20] MEDS: ASCORBIC ACID 500 MG TABLET PO SCH (11:29)
[2022-01-20] MEDS: VITAMIN E ACETATE 400 UNITS CAPSULE PO SCH (11:30)
[2022-01-20] MEDS: FUROSEMIDE 20MG TABLET PO SCH (11:30)
[2022-01-20] MEDS: LEVOTHYROXINE SODIUM 25MCG TABLET PO SCH (11:30)
[2022-01-20] MEDS: AMLODIPINE 5MG TABLET PO SCH (11:30)
[2022-01-20] MEDS ORDERED: NA PHOS,M-B/NA PHOS,DI-BA ENEMA 118ML PR PRN (14:45)
[2022-01-20] MEDS ORDERED: BISACODYL 5MG TABLET PO PRN (15:15)
[2022-01-20 20:27] VITALS: BP 118/56
[2022-01-20] MEDS: MELATONIN 3MG TABLET PO SCH (21:00)
[2022-01-21] MEDS: HEPARIN 5000 UNITS/ML VIAL SUBCUT SCH ×3 (06:00→21:02)
[2022-01-21] MEDS: LEVOTHYROXINE SODIUM 25MCG TABLET PO SCH (06:24)
[2022-01-21 08:00] VITALS: BP 145/66
[2022-01-21] MEDS: POLYETHYLENE GLYCOL 3350 (17GM) 1 DOSE PACK PO SCH (09:00)
[2022-01-21] MEDS: MAGNESIUM OXIDE 400MG TABLET PO SCH ×2 (09:00→17:54)
[2022-01-21] MEDS: SENNOSIDES/DOCUSATE SOD 8.6/50MG TABLET PO SCH ×2 (10:05→21:01)
[2022-01-21] MEDS: MAGNESIUM/ALUMINUM HYDROXIDE/SIMETHICONE 30ML UDC PO PRN ×2 (10:06→10:08)
[2022-01-21] MEDS: VITAMIN E ACETATE 400 UNITS CAPSULE PO SCH (10:06)
[2022-01-21] MEDS: METOPROLOL TARTRATE 25MG TABLET PO SCH ×2 (10:06→21:01)
[2022-01-21] MEDS: LIDOCAINE 5% PATCH TOP SCH (10:06)
[2022-01-21] MEDS: HYDROCODONE/ACETAMINOPHEN 5/325MG TABLET PO PRN ×2 (10:07→21:08)
[2022-01-21] MEDS: FAMOTIDINE 20MG TABLET PO SCH ×2 (10:07→17:54)
[2022-01-21] MEDS: TAMSULOSIN HCL 0.4MG SR CAPSULE PO SCH (10:07)
[2022-01-21] MEDS: AMIODARONE HCL 200 MG TABLET PO SCH (10:07)
[2022-01-21] MEDS: ASCORBIC ACID 500 MG TABLET PO SCH (10:07)
[2022-01-21] MEDS: FUROSEMIDE 20MG TABLET PO SCH (10:08)
[2022-01-21] MEDS: ASPIRIN 81MG TABLET PO SCH (10:08)
[2022-01-21] MEDS: AMLODIPINE 5MG TABLET PO SCH (10:08)
[2022-01-21] MEDS: DICLOFENAC SODIUM 1% GEL 50GM TOP PRN ×2 (13:42→17:54)
[2022-01-21 20:15] VITALS: BP 150/74
[2022-01-21] MEDS: MELATONIN 3MG TABLET PO SCH (21:01)
[2022-01-22] MEDS: HEPARIN 5000 UNITS/ML VIAL SUBCUT SCH ×3 (05:11→22:37)
[2022-01-22] MEDS: LEVOTHYROXINE SODIUM 25MCG TABLET PO SCH (06:36)
[2022-01-22 08:00] VITALS: BP 163/80
[2022-01-22] MEDS: LIDOCAINE 5% PATCH TOP SCH (08:39)
[2022-01-22] MEDS: FUROSEMIDE 20MG TABLET PO SCH (08:40)
[2022-01-22] MEDS: ASPIRIN 81MG TABLET PO SCH (08:40)
[2022-01-22] MEDS: AMLODIPINE 5MG TABLET PO SCH (08:40)
[2022-01-22] MEDS: VITAMIN E ACETATE 400 UNITS CAPSULE PO SCH (08:40)
[2022-01-22] MEDS: ASCORBIC ACID 500 MG TABLET PO SCH (08:40)
[2022-01-22] MEDS: FAMOTIDINE 20MG TABLET PO SCH ×2 (08:40→17:15)
[2022-01-22] MEDS: TAMSULOSIN HCL 0.4MG SR CAPSULE PO SCH (08:40)
[2022-01-22] MEDS: POLYETHYLENE GLYCOL 3350 (17GM) 1 DOSE PACK PO SCH (08:41)
[2022-01-22] MEDS: AMIODARONE HCL 200 MG TABLET PO SCH (08:41)
[2022-01-22] MEDS: SENNOSIDES/DOCUSATE SOD 8.6/50MG TABLET PO SCH ×2 (08:43→21:00)
[2022-01-22] MEDS: METOPROLOL TARTRATE 25MG TABLET PO SCH ×2 (08:44→22:38)
[2022-01-22] MEDS: MAGNESIUM OXIDE 400MG TABLET PO SCH ×2 (08:44→17:15)
[2022-01-22] MEDS: DICLOFENAC SODIUM 1% GEL 50GM TOP PRN (11:49)
[2022-01-22 16:12] LABS: BASOPHILS % 0.6 % (0.0-2.0); HEMATOCRIT. 29.5 % (42.0-52.0); HEMOGLOBIN. 9.4 g/dL (14.0-18.0); LYMPHOCYTES % 29.7 % (20.0-50.0); MEAN CORPUSCULAR HEMOGLOBIN 21.1 pg (28.0-32.0); MEAN CORPUSCULAR VOLUME 66.4 fL (80.0-94.0); MEAN PLATELET VOLUME 8.9 fl (7.4-10.4); MONOCYTES % 7.6 % (2.0-8.0); NEUTROPHILS % 61.1 % (40.0-76.0); PLATELET 263 x1000/uL (130-400); RED BLOOD CELL COUNT 4.44 mill/uL (4.7-6.1); RED CELL DISTRIBUTION WIDTH 21.9 % (11.6-14.6)
[2022-01-22 16:27] LABS: CHLORIDE 103 mEq/L (98-107)
[2022-01-22] MEDS: ACETAMINOPHEN 325MG TABLET PO PRN (17:18)
[2022-01-22] MEDS ORDERED: FURO40TA5 PO (19:53)
[2022-01-22] MEDS ORDERED: LOSA50TA41 PO (19:53)
[2022-01-22 20:00] VITALS: BP 134/95
[2022-01-22] MEDS: MELATONIN 3MG TABLET PO SCH (21:00)
[2022-01-23] MEDS: HEPARIN 5000 UNITS/ML VIAL SUBCUT SCH ×3 (06:38→20:16)
[2022-01-23] MEDS: LEVOTHYROXINE SODIUM 25MCG TABLET PO SCH (06:39)
[2022-01-23] MEDS: ACETAMINOPHEN 325MG TABLET PO PRN (07:01)
[2022-01-23 08:00] VITALS: BP 157/82
[2022-01-23] MEDS: POLYETHYLENE GLYCOL 3350 (17GM) 1 DOSE PACK PO SCH (09:00)
[2022-01-23] MEDS: FAMOTIDINE 20MG TABLET PO SCH ×2 (09:31→17:57)
[2022-01-23] MEDS: VITAMIN E ACETATE 400 UNITS CAPSULE PO SCH (09:31)
[2022-01-23] MEDS: ASPIRIN 81MG TABLET PO SCH (09:31)
[2022-01-23] MEDS: AMIODARONE HCL 200 MG TABLET PO SCH (09:32)
[2022-01-23] MEDS: MAGNESIUM OXIDE 400MG TABLET PO SCH ×2 (09:32→17:57)
[2022-01-23] MEDS: ASCORBIC ACID 500 MG TABLET PO SCH (09:32)
[2022-01-23] MEDS: METOPROLOL TARTRATE 25MG TABLET PO SCH ×2 (09:32→20:15)
[2022-01-23] MEDS: FUROSEMIDE 20MG TABLET PO SCH (09:32)
[2022-01-23] MEDS: AMLODIPINE 5MG TABLET PO SCH (09:33)
[2022-01-23] MEDS: TAMSULOSIN HCL 0.4MG SR CAPSULE PO SCH (09:33)
[2022-01-23] MEDS: LIDOCAINE 5% PATCH TOP SCH (09:34)
[2022-01-23] MEDS: SENNOSIDES/DOCUSATE SOD 8.6/50MG TABLET PO SCH ×2 (09:37→20:14)
[2022-01-23] MEDS: HYDROCODONE/ACETAMINOPHEN 5/325MG TABLET PO PRN ×3 (09:48→19:56)
[2022-01-23 20:00] VITALS: BP 155/73
[2022-01-23] MEDS: MELATONIN 3MG TABLET PO SCH (20:14)
[2022-01-24] MEDS: HYDROCODONE/ACETAMINOPHEN 5/325MG TABLET PO PRN ×4 (05:50→20:10)
[2022-01-24] MEDS: HEPARIN 5000 UNITS/ML VIAL SUBCUT SCH ×3 (05:51→21:26)
[2022-01-24] MEDS: LEVOTHYROXINE SODIUM 25MCG TABLET PO SCH (05:52)
[2022-01-24 08:00] VITALS: BP 144/78
[2022-01-24] MEDS: VITAMIN E ACETATE 400 UNITS CAPSULE PO SCH (08:53)
[2022-01-24] MEDS: LIDOCAINE 5% PATCH TOP SCH (08:53)
[2022-01-24] MEDS: FAMOTIDINE 20MG TABLET PO SCH ×2 (08:54→16:01)
[2022-01-24] MEDS: FERROUS SULFATE 325MG TABLET PO SCH (08:54)
[2022-01-24] MEDS: ASPIRIN 81MG TABLET PO SCH (08:54)
[2022-01-24] MEDS: SENNOSIDES/DOCUSATE SOD 8.6/50MG TABLET PO SCH ×2 (08:54→20:08)
[2022-01-24] MEDS: DICLOFENAC SODIUM 1% GEL 50GM TOP PRN (08:54)
[2022-01-24] MEDS: ASCORBIC ACID 500 MG TABLET PO SCH (08:55)
[2022-01-24] MEDS: AMIODARONE HCL 200 MG TABLET PO SCH (08:55)
[2022-01-24] MEDS: TAMSULOSIN HCL 0.4MG SR CAPSULE PO SCH (08:55)
[2022-01-24] MEDS: METOPROLOL TARTRATE 25MG TABLET PO SCH ×2 (08:56→20:09)
[2022-01-24] MEDS: MAGNESIUM OXIDE 400MG TABLET PO SCH ×2 (08:56→16:01)
[2022-01-24] MEDS: AMLODIPINE 5MG TABLET PO SCH (08:56)
[2022-01-24] MEDS: POLYETHYLENE GLYCOL 3350 (17GM) 1 DOSE PACK PO SCH (08:56)
[2022-01-24] MEDS: FUROSEMIDE 20MG TABLET PO SCH (08:57)
[2022-01-24 10:36] VITALS: BP 144/78
[2022-01-24] MEDS ORDERED: NA PHOS,M-B/NA PHOS,DI-BA ENEMA 118ML PR NR (15:00)
[2022-01-24] MEDS ORDERED: NA PHOS,M-B/NA PHOS,DI-BA ENEMA 118ML PR PRN (15:00)
[2022-01-24 20:03] VITALS: BP 138/66
[2022-01-24] MEDS: MELATONIN 3MG TABLET PO SCH (20:09)
[2022-01-25] MEDS ORDERED: HYDROCODONE/ACETAMINOPHEN 5/325MG TABLET PO NR (03:15)
[2022-01-25] MEDS: LEVOTHYROXINE SODIUM 25MCG TABLET PO SCH (07:03)
[2022-01-25] MEDS: HEPARIN 5000 UNITS/ML VIAL SUBCUT SCH ×3 (07:04→22:00)
[2022-01-25 08:00] VITALS: BP 156/78
[2022-01-25] MEDS ORDERED: NALOXONE HCL 0.4MG/ML VIAL IV PRN (08:15)
[2022-01-25] MEDS: LIDOCAINE 5% PATCH TOP SCH (09:00)
[2022-01-25] MEDS: POLYETHYLENE GLYCOL 3350 (17GM) 1 DOSE PACK PO SCH (09:00)
[2022-01-25] MEDS: SENNOSIDES/DOCUSATE SOD 8.6/50MG TABLET PO SCH ×2 (09:28→22:00)
[2022-01-25] MEDS: VITAMIN E ACETATE 400 UNITS CAPSULE PO SCH (09:28)
[2022-01-25] MEDS: ASCORBIC ACID 500 MG TABLET PO SCH (09:28)
[2022-01-25] MEDS: FAMOTIDINE 20MG TABLET PO SCH ×2 (09:29→16:28)
[2022-01-25] MEDS: METOPROLOL TARTRATE 25MG TABLET PO SCH ×2 (09:29→22:10)
[2022-01-25] MEDS: AMIODARONE HCL 200 MG TABLET PO SCH (09:29)
[2022-01-25] MEDS: AMLODIPINE 5MG TABLET PO SCH (09:29)
[2022-01-25] MEDS: ASPIRIN 81MG TABLET PO SCH (09:29)
[2022-01-25] MEDS: MAGNESIUM OXIDE 400MG TABLET PO SCH ×2 (09:30→16:28)
[2022-01-25] MEDS: HYDROCODONE/ACETAMINOPHEN 5/325MG TABLET PO PRN ×2 (09:30→13:36)
[2022-01-25] MEDS: TAMSULOSIN HCL 0.4MG SR CAPSULE PO SCH (09:30)
[2022-01-25] MEDS: FUROSEMIDE 20MG TABLET PO SCH (09:31)
[2022-01-25] MEDS: MAGNESIUM/ALUMINUM HYDROXIDE/SIMETHICONE 30ML UDC PO PRN (12:47)
[2022-01-25 20:12] VITALS: BP 176/76
[2022-01-25] MEDS: MELATONIN 3MG TABLET PO SCH (22:01)
[2022-01-25] MEDS: TRAMADOL 50MG TABLET PO PRN (22:06)
[2022-01-26] MEDS: LEVOTHYROXINE SODIUM 25MCG TABLET PO SCH (05:44)
[2022-01-26] MEDS: HEPARIN 5000 UNITS/ML VIAL SUBCUT SCH ×3 (05:45→20:40)
[2022-01-26 08:00] VITALS: BP 161/81
[2022-01-26] MEDS: LIDOCAINE 5% PATCH TOP SCH (09:39)
[2022-01-26] MEDS: FAMOTIDINE 20MG TABLET PO SCH ×2 (09:40→17:53)
[2022-01-26] MEDS: TAMSULOSIN HCL 0.4MG SR CAPSULE PO SCH (09:40)
[2022-01-26] MEDS: FUROSEMIDE 20MG TABLET PO SCH (09:40)
[2022-01-26] MEDS: ASPIRIN 81MG TABLET PO SCH (09:40)
[2022-01-26] MEDS: VITAMIN E ACETATE 400 UNITS CAPSULE PO SCH (09:40)
[2022-01-26] MEDS: FERROUS SULFATE 325MG TABLET PO SCH (09:40)
[2022-01-26] MEDS: AMIODARONE HCL 200 MG TABLET PO SCH (09:40)
[2022-01-26] MEDS: SENNOSIDES/DOCUSATE SOD 8.6/50MG TABLET PO SCH ×2 (09:40→20:38)
[2022-01-26] MEDS: POLYETHYLENE GLYCOL 3350 (17GM) 1 DOSE PACK PO SCH (09:41)
[2022-01-26] MEDS: ASCORBIC ACID 500 MG TABLET PO SCH (09:41)
[2022-01-26] MEDS: AMLODIPINE 5MG TABLET PO SCH (09:41)
[2022-01-26] MEDS: MAGNESIUM OXIDE 400MG TABLET PO SCH ×2 (09:41→17:53)
[2022-01-26] MEDS: METOPROLOL TARTRATE 25MG TABLET PO SCH ×2 (09:41→20:39)
[2022-01-26] MEDS: TRAMADOL 50MG TABLET PO PRN ×2 (09:46→23:20)
[2022-01-26 20:00] VITALS: BP 125/64
[2022-01-26] MEDS: MELATONIN 3MG TABLET PO SCH (20:39)
[2022-01-26] MEDS: MAGNESIUM HYDROXIDE 400MG/5ML 30ML UDC PO SCH (20:39)
[2022-01-27] MEDS: LEVOTHYROXINE SODIUM 25MCG TABLET PO SCH (05:53)
[2022-01-27] MEDS: HEPARIN 5000 UNITS/ML VIAL SUBCUT SCH ×3 (05:53→21:01)
[2022-01-27 08:00] VITALS: BP 166/76
[2022-01-27] MEDS: DICLOFENAC SODIUM 1% GEL 50GM TOP PRN (09:22)
[2022-01-27] MEDS: POLYETHYLENE GLYCOL 3350 (17GM) 1 DOSE PACK PO SCH (09:22)
[2022-01-27] MEDS: LIDOCAINE 5% PATCH TOP SCH (09:24)
[2022-01-27] MEDS: METOPROLOL TARTRATE 25MG TABLET PO SCH ×2 (09:24→21:00)
[2022-01-27] MEDS: AMIODARONE HCL 200 MG TABLET PO SCH (09:25)
[2022-01-27] MEDS: AMLODIPINE 5MG TABLET PO SCH (09:25)
[2022-01-27] MEDS: SENNOSIDES/DOCUSATE SOD 8.6/50MG TABLET PO SCH ×2 (09:25→20:59)
[2022-01-27] MEDS: MAGNESIUM OXIDE 400MG TABLET PO SCH ×2 (09:25→16:43)
[2022-01-27] MEDS: FAMOTIDINE 20MG TABLET PO SCH ×2 (09:25→16:43)
[2022-01-27] MEDS: ASPIRIN 81MG TABLET PO SCH (09:25)
[2022-01-27] MEDS: FUROSEMIDE 20MG TABLET PO SCH (09:26)
[2022-01-27] MEDS: ASCORBIC ACID 500 MG TABLET PO SCH (09:26)
[2022-01-27] MEDS: TAMSULOSIN HCL 0.4MG SR CAPSULE PO SCH (09:26)
[2022-01-27] MEDS: TRAMADOL 50MG TABLET PO PRN ×2 (09:27→20:59)
[2022-01-27] MEDS: VITAMIN E ACETATE 400 UNITS CAPSULE PO SCH (09:28)
[2022-01-27] MEDS: ACETAMINOPHEN 325MG TABLET PO PRN ×2 (10:14→21:01)
[2022-01-27] MEDS: IBUPROFEN 400MG TABLET PO PRN (10:15)
[2022-01-27 20:00] VITALS: BP 146/71
[2022-01-27] MEDS: MAGNESIUM HYDROXIDE 400MG/5ML 30ML UDC PO SCH (20:59)
[2022-01-27] MEDS: MELATONIN 3MG TABLET PO SCH (21:00)
[2022-01-28] MEDS: HEPARIN 5000 UNITS/ML VIAL SUBCUT SCH ×3 (06:04→21:46)
[2022-01-28] MEDS: LEVOTHYROXINE SODIUM 25MCG TABLET PO SCH (06:49)
[2022-01-28 08:00] VITALS: BP 128/79
[2022-01-28] MEDS: FUROSEMIDE 20MG TABLET PO SCH (08:49)
[2022-01-28] MEDS: FERROUS SULFATE 325MG TABLET PO SCH (08:49)
[2022-01-28] MEDS: ASPIRIN 81MG TABLET PO SCH (08:49)
[2022-01-28] MEDS: VITAMIN E ACETATE 400 UNITS CAPSULE PO SCH (08:49)
[2022-01-28] MEDS: AMIODARONE HCL 200 MG TABLET PO SCH (08:49)
[2022-01-28] MEDS: SENNOSIDES/DOCUSATE SOD 8.6/50MG TABLET PO SCH ×2 (08:49→21:41)
[2022-01-28] MEDS: MAGNESIUM OXIDE 400MG TABLET PO SCH ×2 (08:49→16:50)
[2022-01-28] MEDS: ASCORBIC ACID 500 MG TABLET PO SCH (08:49)
[2022-01-28] MEDS: LIDOCAINE 5% PATCH TOP SCH (08:50)
[2022-01-28] MEDS: POLYETHYLENE GLYCOL 3350 (17GM) 1 DOSE PACK PO SCH (08:50)
[2022-01-28] MEDS: FAMOTIDINE 20MG TABLET PO SCH ×2 (08:50→16:50)
[2022-01-28] MEDS: AMLODIPINE 5MG TABLET PO SCH (08:51)
[2022-01-28] MEDS: METOPROLOL TARTRATE 25MG TABLET PO SCH ×2 (08:52→21:41)
[2022-01-28] MEDS: TAMSULOSIN HCL 0.4MG SR CAPSULE PO SCH (08:52)
[2022-01-28] MEDS: [UNRECOGNIZED DRUG - OTHER] PO SCH (09:00)
[2022-01-28] MEDS: [UNRECOGNIZED DRUG - OTHER] PO SCH (09:00)
[2022-01-28] MEDS: ACETAMINOPHEN 325MG TABLET PO PRN (16:52)
[2022-01-28] MEDS: IBUPROFEN 400MG TABLET PO PRN (16:52)
[2022-01-28 20:00] VITALS: BP 119/58
[2022-01-28] MEDS: MAGNESIUM HYDROXIDE 400MG/5ML 30ML UDC PO SCH (21:00)
[2022-01-28] MEDS: MELATONIN 3MG TABLET PO SCH (21:43)
[2022-01-29] MEDS: LEVOTHYROXINE SODIUM 25MCG TABLET PO SCH (06:41)
[2022-01-29] MEDS: DICLOFENAC SODIUM 1% GEL 50GM TOP PRN ×2 (06:41→20:42)
[2022-01-29] MEDS: HEPARIN 5000 UNITS/ML VIAL SUBCUT SCH ×3 (06:42→22:00)
[2022-01-29 06:46] LABS: CHLORIDE 106 mEq/L (98-107)
[2022-01-29] MEDS: TRAMADOL 50MG TABLET PO PRN ×2 (06:48→20:43)
[2022-01-29 06:53] LABS: BASOPHILS % 0.7 % (0.0-2.0); EOSINOPHILS % 1.2 % (0.0-5.0); HEMATOCRIT. 30.2 % (42.0-52.0); HEMOGLOBIN. 9.7 g/dL (14.0-18.0); LYMPHOCYTES % 32.7 % (20.0-50.0); MEAN CORPUSCULAR HEMOGLOBIN 21.2 pg (28.0-32.0); MEAN CORPUSCULAR VOLUME 66.5 fL (80.0-94.0); MEAN PLATELET VOLUME 9.1 fl (7.4-10.4); MONOCYTES % 6.9 % (2.0-8.0); NEUTROPHILS % 58.5 % (40.0-76.0); PLATELET 268 x1000/uL (130-400); RED BLOOD CELL COUNT 4.54 mill/uL (4.7-6.1); RED CELL DISTRIBUTION WIDTH 21.5 % (11.6-14.6)
[2022-01-29 08:00] VITALS: BP 163/86
[2022-01-29] MEDS: POLYETHYLENE GLYCOL 3350 (17GM) 1 DOSE PACK PO SCH (08:22)
[2022-01-29] MEDS: SENNOSIDES/DOCUSATE SOD 8.6/50MG TABLET PO SCH (08:23)
[2022-01-29] MEDS: ASPIRIN 81MG TABLET PO SCH (08:24)
[2022-01-29] MEDS: FUROSEMIDE 20MG TABLET PO SCH (08:24)
[2022-01-29] MEDS: LIDOCAINE 5% PATCH TOP SCH (08:24)
[2022-01-29] MEDS: FAMOTIDINE 20MG TABLET PO SCH ×2 (08:24→16:32)
[2022-01-29] MEDS: METOPROLOL TARTRATE 25MG TABLET PO SCH (08:25)
[2022-01-29] MEDS: MAGNESIUM OXIDE 400MG TABLET PO SCH ×2 (08:25→16:32)
[2022-01-29] MEDS: VITAMIN E ACETATE 400 UNITS CAPSULE PO SCH (08:25)
[2022-01-29] MEDS: AMIODARONE HCL 200 MG TABLET PO SCH (08:25)
[2022-01-29] MEDS: AMLODIPINE 5MG TABLET PO SCH (08:26)
[2022-01-29] MEDS: [UNRECOGNIZED DRUG - OTHER] PO SCH (08:26)
[2022-01-29] MEDS: TAMSULOSIN HCL 0.4MG SR CAPSULE PO SCH (08:26)
[2022-01-29] MEDS: ASCORBIC ACID 500 MG TABLET PO SCH (08:26)
[2022-01-29] MEDS: [UNRECOGNIZED DRUG - OTHER] PO SCH (08:27)
[2022-01-29 20:00] VITALS: BP 157/88
[2022-01-29] MEDS: MELATONIN 3MG TABLET PO SCH (20:42)
[2022-01-29] MEDS: MAGNESIUM HYDROXIDE 400MG/5ML 30ML UDC PO SCH (21:00)
[2022-01-30] MEDS: DICLOFENAC SODIUM 1% GEL 50GM TOP PRN ×2 (01:26→20:15)
[2022-01-30] MEDS: HEPARIN 5000 UNITS/ML VIAL SUBCUT SCH ×3 (07:15→22:51)
[2022-01-30] MEDS: LEVOTHYROXINE SODIUM 25MCG TABLET PO SCH (07:15)
[2022-01-30 08:00] VITALS: BP 108/56
[2022-01-30] MEDS: SENNOSIDES/DOCUSATE SOD 8.6/50MG TABLET PO SCH ×2 (08:12→20:09)
[2022-01-30] MEDS: ASPIRIN 81MG TABLET PO SCH (08:12)
[2022-01-30] MEDS: VITAMIN E ACETATE 400 UNITS CAPSULE PO SCH (08:13)
[2022-01-30] MEDS: ASCORBIC ACID 500 MG TABLET PO SCH (08:13)
[2022-01-30] MEDS: FAMOTIDINE 20MG TABLET PO SCH ×2 (08:13→17:03)
[2022-01-30] MEDS: LIDOCAINE 5% PATCH TOP SCH (08:15)
[2022-01-30] MEDS: TRAMADOL 50MG TABLET PO PRN (08:22)
[2022-01-30] MEDS: TAMSULOSIN HCL 0.4MG SR CAPSULE PO SCH (08:27)
[2022-01-30] MEDS: FUROSEMIDE 20MG TABLET PO SCH (08:28)
[2022-01-30] MEDS: METOPROLOL TARTRATE 25MG TABLET PO SCH ×2 (08:28→20:16)
[2022-01-30] MEDS: POLYETHYLENE GLYCOL 3350 (17GM) 1 DOSE PACK PO SCH (08:29)
[2022-01-30] MEDS: AMLODIPINE 5MG TABLET PO SCH (08:29)
[2022-01-30] MEDS: MAGNESIUM OXIDE 400MG TABLET PO SCH ×2 (08:29→17:03)
[2022-01-30] MEDS: [UNRECOGNIZED DRUG - OTHER] PO SCH (08:30)
[2022-01-30] MEDS: AMIODARONE HCL 200 MG TABLET PO SCH (08:30)
[2022-01-30] MEDS: [UNRECOGNIZED DRUG - OTHER] PO SCH (08:30)
[2022-01-30] MEDS ORDERED: NALOXONE HCL 0.4MG/ML VIAL IV PRN (10:00)
[2022-01-30] MEDS: MAGNESIUM HYDROXIDE 400MG/5ML 30ML UDC PO SCH (20:09)
[2022-01-30] MEDS: MELATONIN 3MG TABLET PO SCH (20:09)
[2022-01-30] MEDS: IBUPROFEN 400MG TABLET PO PRN (20:14)
[2022-01-30] MEDS ORDERED: ACETAMINOPHEN 325MG TABLET PO PRN (22:45)
[2022-01-30] MEDS: ACETAMINOPHEN 325MG TABLET PO PRN (23:00)
[2022-01-31] MEDS: HEPARIN 5000 UNITS/ML VIAL SUBCUT SCH ×3 (06:32→20:43)
[2022-01-31] MEDS: LEVOTHYROXINE SODIUM 25MCG TABLET PO SCH (06:32)
[2022-01-31] MEDS: IBUPROFEN 400MG TABLET PO PRN ×3 (06:54→22:54)
[2022-01-31] MEDS: ACETAMINOPHEN 325MG TABLET PO PRN ×3 (06:55→22:53)
[2022-01-31 07:55] VITALS: BP 171/76
[2022-01-31] MEDS: FAMOTIDINE 20MG TABLET PO SCH (08:24)
[2022-01-31] MEDS: AMLODIPINE 5MG TABLET PO SCH (08:24)
[2022-01-31] MEDS: FERROUS SULFATE 325MG TABLET PO SCH (08:24)
[2022-01-31] MEDS: VITAMIN E ACETATE 400 UNITS CAPSULE PO SCH (08:24)
[2022-01-31] MEDS: ASPIRIN 81MG TABLET PO SCH (08:24)
[2022-01-31] MEDS: AMIODARONE HCL 200 MG TABLET PO SCH (08:25)
[2022-01-31] MEDS: LIDOCAINE 5% PATCH TOP SCH (08:25)
[2022-01-31] MEDS: MAGNESIUM OXIDE 400MG TABLET PO SCH ×2 (08:25→17:30)
[2022-01-31] MEDS: METOPROLOL TARTRATE 25MG TABLET PO SCH ×2 (08:25→20:48)
[2022-01-31] MEDS: DICLOFENAC SODIUM 1% GEL 50GM TOP PRN ×3 (08:26→20:57)
[2022-01-31] MEDS: [UNRECOGNIZED DRUG - OTHER] PO SCH (08:26)
[2022-01-31] MEDS: TAMSULOSIN HCL 0.4MG SR CAPSULE PO SCH (08:26)
[2022-01-31] MEDS: SENNOSIDES/DOCUSATE SOD 8.6/50MG TABLET PO SCH ×2 (08:26→20:48)
[2022-01-31] MEDS: [UNRECOGNIZED DRUG - OTHER] PO SCH (08:26)
[2022-01-31] MEDS: FUROSEMIDE 20MG TABLET PO SCH (08:26)
[2022-01-31] MEDS: ASCORBIC ACID 500 MG TABLET PO SCH (08:26)
[2022-01-31] MEDS: POLYETHYLENE GLYCOL 3350 (17GM) 1 DOSE PACK PO SCH (08:27)
[2022-01-31] MEDS ORDERED: HYDRALAZINE HCL 10MG TABLET PO PRN (14:45)
[2022-01-31] MEDS ORDERED: AMLODIPINE 5MG TABLET PO NR (14:45)
[2022-01-31 20:00] VITALS: BP 154/84
[2022-01-31] MEDS: MELATONIN 3MG TABLET PO SCH (20:48)
[2022-01-31] MEDS: MAGNESIUM HYDROXIDE 400MG/5ML 30ML UDC PO SCH ×2 (20:48→20:55)
[2022-02-01] MEDS: IBUPROFEN 400MG TABLET PO PRN ×3 (04:47→21:42)
[2022-02-01] MEDS: ACETAMINOPHEN 325MG TABLET PO PRN ×3 (04:47→21:41)
[2022-02-01] MEDS: HEPARIN 5000 UNITS/ML VIAL SUBCUT SCH ×3 (04:48→21:45)
[2022-02-01] MEDS: LEVOTHYROXINE SODIUM 25MCG TABLET PO SCH (04:48)
[2022-02-01 06:22] LABS: HEMATOCRIT 29.7 % (42.0-52.0); HEMOGLOBIN 9.4 g/dL (14.0-18.0); MEAN CORPUSCULAR HEMOGLOBIN 21.2 pg (28.0-32.0); MEAN CORPUSCULAR VOLUME 66.9 fL (80.0-94.0); PLATELET 256 x1000/uL (130-400); RED BLOOD CELL COUNT 4.44 mill/uL (4.7-6.1); RED CELL DISTRIBUTION WIDTH 21.4 % (11.6-14.6)
[2022-02-01 06:51] LABS: CHLORIDE 106 mEq/L (98-107)
[2022-02-01 06:55] LABS: PHOSPHORUS 4.2 mg/dL (2.5-4.9)
[2022-02-01 08:00] VITALS: BP 154/82
[2022-02-01] MEDS: VITAMIN E ACETATE 400 UNITS CAPSULE PO SCH (09:23)
[2022-02-01] MEDS: SENNOSIDES/DOCUSATE SOD 8.6/50MG TABLET PO SCH ×2 (09:23→21:45)
[2022-02-01] MEDS: ASCORBIC ACID 500 MG TABLET PO SCH (09:23)
[2022-02-01] MEDS: AMIODARONE HCL 200 MG TABLET PO SCH (09:24)
[2022-02-01] MEDS: MAGNESIUM OXIDE 400MG TABLET PO SCH ×2 (09:24→17:00)
[2022-02-01] MEDS: ASPIRIN 81MG TABLET PO SCH (09:24)
[2022-02-01] MEDS: AMLODIPINE 10MG TABLET PO SCH (09:24)
[2022-02-01] MEDS: FUROSEMIDE 20MG TABLET PO SCH (09:24)
[2022-02-01] MEDS: METOPROLOL TARTRATE 25MG TABLET PO SCH ×2 (09:24→21:42)
[2022-02-01] MEDS: LIDOCAINE 5% PATCH TOP SCH (09:25)
[2022-02-01] MEDS: [UNRECOGNIZED DRUG - OTHER] PO SCH (09:25)
[2022-02-01] MEDS: TAMSULOSIN HCL 0.4MG SR CAPSULE PO SCH (09:25)
[2022-02-01] MEDS: [UNRECOGNIZED DRUG - OTHER] PO SCH (09:26)
[2022-02-01] MEDS: POLYETHYLENE GLYCOL 3350 (17GM) 1 DOSE PACK PO SCH (09:26)
[2022-02-01] MEDS: GABAPENTIN 100MG CAPSULE PO SCH (17:00)
[2022-02-01 20:00] VITALS: BP 149/75
[2022-02-01] MEDS ORDERED: GABAPENTIN 100MG CAPSULE PO SCH (21:00)
[2022-02-01] MEDS: MELATONIN 3MG TABLET PO SCH (21:43)
[2022-02-01] MEDS: MAGNESIUM HYDROXIDE 400MG/5ML 30ML UDC PO SCH (21:43)
[2022-02-02] MEDS: HEPARIN 5000 UNITS/ML VIAL SUBCUT SCH ×3 (06:59→21:07)
[2022-02-02] MEDS: LEVOTHYROXINE SODIUM 25MCG TABLET PO SCH (07:00)
[2022-02-02 08:00] VITALS: BP 175/86
[2022-02-02] MEDS: GABAPENTIN 100MG CAPSULE PO SCH ×2 (08:27→17:08)
[2022-02-02] MEDS: ASPIRIN 81MG TABLET PO SCH (08:28)
[2022-02-02] MEDS: VITAMIN E ACETATE 400 UNITS CAPSULE PO SCH (08:28)
[2022-02-02] MEDS: ASCORBIC ACID 500 MG TABLET PO SCH (08:28)
[2022-02-02] MEDS: MAGNESIUM OXIDE 400MG TABLET PO SCH ×2 (08:28→17:08)
[2022-02-02] MEDS: POLYETHYLENE GLYCOL 3350 (17GM) 1 DOSE PACK PO SCH (08:28)
[2022-02-02] MEDS: FERROUS SULFATE 325MG TABLET PO SCH (08:29)
[2022-02-02] MEDS: IBUPROFEN 400MG TABLET PO PRN (08:31)
[2022-02-02] MEDS: TAMSULOSIN HCL 0.4MG SR CAPSULE PO SCH (08:31)
[2022-02-02] MEDS: METOPROLOL TARTRATE 25MG TABLET PO SCH ×2 (08:32→21:08)
[2022-02-02] MEDS: AMLODIPINE 10MG TABLET PO SCH (08:32)
[2022-02-02] MEDS: LIDOCAINE 5% PATCH TOP SCH (08:33)
[2022-02-02] MEDS: AMIODARONE HCL 200 MG TABLET PO SCH (08:39)
[2022-02-02] MEDS: [UNRECOGNIZED DRUG - OTHER] PO SCH (08:52)
[2022-02-02] MEDS: SENNOSIDES/DOCUSATE SOD 8.6/50MG TABLET PO SCH ×2 (08:52→21:12)
[2022-02-02] MEDS: [UNRECOGNIZED DRUG - OTHER] PO SCH (08:52)
[2022-02-02 20:00] VITALS: BP 108/72
[2022-02-02] MEDS: ACETAMINOPHEN 325MG TABLET PO PRN (21:06)
[2022-02-02] MEDS: GABAPENTIN 300MG CAPSULE PO SCH (21:07)
[2022-02-02] MEDS: MAGNESIUM HYDROXIDE 400MG/5ML 30ML UDC PO SCH (21:07)
[2022-02-02] MEDS: MELATONIN 3MG TABLET PO SCH (21:12)
[2022-02-03] MEDS: ACETAMINOPHEN 325MG TABLET PO PRN ×5 (00:18→05:41)
[2022-02-03] MEDS: HEPARIN 5000 UNITS/ML VIAL SUBCUT SCH ×3 (05:35→22:00)
[2022-02-03] MEDS: IBUPROFEN 400MG TABLET PO PRN ×2 (05:35→07:40)
[2022-02-03] MEDS: LEVOTHYROXINE SODIUM 25MCG TABLET PO SCH (05:35)
[2022-02-03 08:00] VITALS: BP 130/61
[2022-02-03] MEDS ORDERED: GUAIFENESIN/CODEINE 200-20MG/10ML UDC PO PRN (08:45)
[2022-02-03] MEDS: SENNOSIDES/DOCUSATE SOD 8.6/50MG TABLET PO SCH (09:00)
[2022-02-03] MEDS: MAGNESIUM OXIDE 400MG TABLET PO SCH ×2 (09:40→16:16)
[2022-02-03] MEDS: ASPIRIN 81MG TABLET PO SCH (09:40)
[2022-02-03] MEDS: ASCORBIC ACID 500 MG TABLET PO SCH (09:40)
[2022-02-03] MEDS: VITAMIN E ACETATE 400 UNITS CAPSULE PO SCH (09:40)
[2022-02-03] MEDS: METOPROLOL TARTRATE 25MG TABLET PO SCH (09:40)
[2022-02-03] MEDS: GABAPENTIN 100MG CAPSULE PO SCH ×2 (09:41→16:16)
[2022-02-03] MEDS: AMLODIPINE 10MG TABLET PO SCH (09:41)
[2022-02-03] MEDS: TAMSULOSIN HCL 0.4MG SR CAPSULE PO SCH (09:41)
[2022-02-03] MEDS: [UNRECOGNIZED DRUG - OTHER] PO SCH (09:42)
[2022-02-03] MEDS: DICLOFENAC SODIUM 1% GEL 50GM TOP PRN ×2 (09:42→19:42)
[2022-02-03] MEDS: AMIODARONE HCL 200 MG TABLET PO SCH (09:42)
[2022-02-03] MEDS: [UNRECOGNIZED DRUG - OTHER] PO SCH (09:42)
[2022-02-03] MEDS: LIDOCAINE 5% PATCH TOP SCH (09:42)
[2022-02-03] MEDS: POLYETHYLENE GLYCOL 3350 (17GM) 1 DOSE PACK PO SCH (09:43)
[2022-02-03] MEDS: CLOTRIMAZOLE 1% CREAM 15GM TOP SCH (17:37)
[2022-02-03] MEDS: AMMONIUM LACTATE 12% LOTION 240ML TOP SCH (17:37)
[2022-02-03 20:00] VITALS: BP 150/76
[2022-02-04] MEDS: MAGNESIUM HYDROXIDE 400MG/5ML 30ML UDC PO SCH ×2 (00:47→21:00)
[2022-02-04] MEDS: MELATONIN 3MG TABLET PO SCH ×2 (00:48→21:00)
[2022-02-04] MEDS: METOPROLOL TARTRATE 25MG TABLET PO SCH ×3 (00:48→21:00)
[2022-02-04] MEDS: SENNOSIDES/DOCUSATE SOD 8.6/50MG TABLET PO SCH ×3 (00:48→21:00)
[2022-02-04] MEDS: GABAPENTIN 300MG CAPSULE PO SCH ×2 (00:48→21:00)
[2022-02-04] MEDS: HEPARIN 5000 UNITS/ML VIAL SUBCUT SCH ×3 (06:49→22:00)
[2022-02-04] MEDS: LEVOTHYROXINE SODIUM 25MCG TABLET PO SCH (06:49)
[2022-02-04 08:00] VITALS: BP 159/90
[2022-02-04] MEDS: [UNRECOGNIZED DRUG - OTHER] PO SCH (08:41)
[2022-02-04] MEDS: AMMONIUM LACTATE 12% LOTION 240ML TOP SCH ×2 (08:41→17:02)
[2022-02-04] MEDS: ASPIRIN 81MG TABLET PO SCH (08:41)
[2022-02-04] MEDS: CLOTRIMAZOLE 1% CREAM 15GM TOP SCH ×2 (08:41→17:03)
[2022-02-04] MEDS: [UNRECOGNIZED DRUG - OTHER] PO SCH (08:41)
[2022-02-04] MEDS: TAMSULOSIN HCL 0.4MG SR CAPSULE PO SCH (08:42)
[2022-02-04] MEDS: GABAPENTIN 100MG CAPSULE PO SCH ×2 (08:42→17:03)
[2022-02-04] MEDS: VITAMIN E ACETATE 400 UNITS CAPSULE PO SCH (08:42)
[2022-02-04] MEDS: AMIODARONE HCL 200 MG TABLET PO SCH (08:42)
[2022-02-04] MEDS: FERROUS SULFATE 325MG TABLET PO SCH (08:42)
[2022-02-04] MEDS: ASCORBIC ACID 500 MG TABLET PO SCH (08:42)
[2022-02-04] MEDS: AMLODIPINE 10MG TABLET PO SCH (08:43)
[2022-02-04] MEDS: MAGNESIUM OXIDE 400MG TABLET PO SCH ×2 (08:43→17:03)
[2022-02-04] MEDS: LIDOCAINE 5% PATCH TOP SCH (08:44)
[2022-02-04] MEDS: POLYETHYLENE GLYCOL 3350 (17GM) 1 DOSE PACK PO SCH (08:44)
[2022-02-04] MEDS: ACETAMINOPHEN 325MG TABLET PO PRN (09:40)
[2022-02-05] MEDS: LEVOTHYROXINE SODIUM 25MCG TABLET PO SCH (05:51)
[2022-02-05] MEDS: HEPARIN 5000 UNITS/ML VIAL SUBCUT SCH (06:12)
[2022-02-05 06:14] VITALS: BP 145/89
[2022-02-05 07:34] LABS: HEMATOCRIT 30.7 % (42.0-52.0); HEMOGLOBIN 9.8 g/dL (14.0-18.0); MEAN CORPUSCULAR HEMOGLOBIN 21.4 pg (28.0-32.0); MEAN CORPUSCULAR VOLUME 67.2 fL (80.0-94.0); PLATELET 236 x1000/uL (130-400); RED BLOOD CELL COUNT 4.58 mill/uL (4.7-6.1); RED CELL DISTRIBUTION WIDTH 21.7 % (11.6-14.6)
[2022-02-05 07:44] LABS: CHLORIDE 108 mEq/L (98-107)
[2022-02-05 08:00] VITALS: BP 143/72
[2022-02-05] MEDS: [UNRECOGNIZED DRUG - OTHER] PO SCH (08:24)
[2022-02-05] MEDS: [UNRECOGNIZED DRUG - OTHER] PO SCH (08:24)
[2022-02-05] MEDS: TAMSULOSIN HCL 0.4MG SR CAPSULE PO SCH (08:28)
[2022-02-05] MEDS: AMMONIUM LACTATE 12% LOTION 240ML TOP SCH (08:28)
[2022-02-05] MEDS: LIDOCAINE 5% PATCH TOP SCH (08:28)
[2022-02-05] MEDS: ASPIRIN 81MG TABLET PO SCH (08:29)
[2022-02-05] MEDS: MAGNESIUM OXIDE 400MG TABLET PO SCH (08:29)
[2022-02-05] MEDS: AMLODIPINE 10MG TABLET PO SCH (08:29)
[2022-02-05] MEDS: AMIODARONE HCL 200 MG TABLET PO SCH (08:29)
[2022-02-05] MEDS: METOPROLOL TARTRATE 25MG TABLET PO SCH (08:29)
[2022-02-05] MEDS: SENNOSIDES/DOCUSATE SOD 8.6/50MG TABLET PO SCH (08:29)
[2022-02-05] MEDS: ASCORBIC ACID 500 MG TABLET PO SCH (08:30)
[2022-02-05] MEDS: CLOTRIMAZOLE 1% CREAM 15GM TOP SCH (08:30)
[2022-02-05] MEDS: VITAMIN E ACETATE 400 UNITS CAPSULE PO SCH (08:30)
[2022-02-05] MEDS: POLYETHYLENE GLYCOL 3350 (17GM) 1 DOSE PACK PO SCH (08:31)
[2022-02-05] MEDS: GABAPENTIN 100MG CAPSULE PO SCH (08:33)
[2022-02-05 09:57] VITALS: BP 145/89
== END 2022-02-05 10:23 | DRG 64 ==
PROVIDERS: ADMIT Psychiatry & Neurology Neurology; ATTEND Internal Medicine
DX: I63.9 Cerebral infarction, unspecified (principal); I71.00 Dissection of unspecified site of aorta; I69.351 Hemiplegia and hemiparesis following cerebral infarction affecting right dominant side; E44.1 Mild protein-calorie malnutrition; I50.32 Chronic diastolic (congestive) heart failure; Z68.42 Body mass index [BMI] 45.0-49.9, adult; J98.11 Atelectasis; D50.9 Iron deficiency anemia, unspecified; D72.829 Elevated white blood cell count, unspecified; E03.8 Other specified hypothyroidism; E66.01 Morbid (severe) obesity due to excess calories; E83.42 Hypomagnesemia; G47.33 Obstructive sleep apnea (adult) (pediatric); I11.0 Hypertensive heart disease with heart failure; I48.0 Paroxysmal atrial fibrillation; I89.0 Lymphedema, not elsewhere classified; B35.1 Tinea unguium; B35.3 Tinea pedis; K59.03 Drug induced constipation; T40.2X5A Adverse effect of other opioids, initial encounter; Z20.822 Contact with and (suspected) exposure to COVID-19; Z53.20 Procedure and treatment not carried out because of patient's decision for unspecified reasons; M48.02 Spinal stenosis, cervical region; M47.817 Spondylosis without myelopathy or radiculopathy, lumbosacral region; L85.3 Xerosis cutis; Z79.899 Other long term (current) drug therapy; Y92.89 Other specified places as the place of occurrence of the external cause
CPT/HCPCS: 36415; 71045; 72128; 72131; 73560; 80048; 80053; 80061; 82550; 82607; 82728; 82746; 82962; 83036; 83540; 83550; 83735; 83880; 84100; 84439; 84443; 84484; 85025; 85027; 86376; 87426; 93005; 93306; 93970; 93971; 94640; 94660; 94664; 97110; 97112; 97116; 97162; 97166; 97530; 97535; 97542; A4565; A6261; J1644